=== PATIENT | female | born 1985 | race Caucasian/White ===

== ENCOUNTER → 2016-09-18 | Outpatient (CLI) | payer BC ==
--- NOTE | 2016-09-18 12:07 | DIAGNOSTIC IMAGING REPORT ---
RIGHT TIBIA/FIBULA 2 VIEWS ROUTINE CLINICAL HISTORY: Right tibial/fibular fracture 2 years ago. Evaluate for hardware failure. COMPARISON: None FINDINGS: A right tibial intramedullary thai with proximal and distal screws is in place. The hardware is intact. There is a healed fracture the midshaft of the right tibia. There is also a fracture of the midshaft of the right fibula. Fracture is mildly displaced. Incomplete healing is noted with lucency and callus formation. This suggests a malunion. No additional fractures are identified. Alignment of the right knee and ankle appears anatomic. There may be minimal lucency adjacent to the distal most screw within the right tibia. IMPRESSION: 1. Status post internal fixation of a right tibial fracture with intramedullary thai and screws. Healed tibial fracture. Equivocal lucency adjacent to the distal most tibial screw is probably within normal limits although slight loosening could appear similar. 2. Mildly displaced incompletely healed fracture of the midshaft of the right fibula which suggests a malunion/nonunited fracture. Electronically signed by: Victor Hugo Molina M.D. 09/18/2016 12:06 PM Dictated Date/Time: 09/18/2016 12:00 PM
== END | disposition home or self-care (01) ==
LOC: C.RAD 11:31
PROVIDERS: ATTEND Family Medicine
DX: S82.201A Unspecified fracture of shaft of right tibia, initial encounter for closed fracture (principal); S82.401A Unspecified fracture of shaft of right fibula, initial encounter for closed fracture; X58.XXXA Exposure to other specified factors, initial encounter